=== PATIENT | female | born 1945 | race Hispanic/Latino ===

== ENCOUNTER 2020-06-08 02:02 | Observation (INO) | payer MEDICARE ==
[2020-06-08] MEDS ORDERED: SODIUM CHLORIDE 0.9% 1000 ML 1,000 ML IV ONE ×2 (02:09→05:26)
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
--- NOTE | 2020-06-08 02:41 | XRay Report ---
CHEST 1 VIEW INDICATION: ams. COMPARISON: None FINDINGS: SUPPORT DEVICES: None. HEART: Within normal limits. LUNGS/PLEURA: No acute air space or interstitial disease. ADDITIONAL FINDINGS: None. IMPRESSION: 1. No acute findings. Signer Name: Mikie Vail MD Signed: 06/08/2020 2:37 AM Workstation Name: [id number]
[2020-06-08 02:46] LABS: Bilirubin,Urine SM (Negative); Blood,Urine NEG (Negative); Color,Urine Yellow (Yellow); Mucus,Urine FEW /HPF; RBC,Urine < 1.0 /HPF (0.0-6.0)
[2020-06-08 02:51] LABS: Basophils # (Auto) 0.1 K/mm3 (0.0-0.1); Basophils % (Auto) 1.8 % (0.0-1.8); Eosinophils # (Auto) 0.4 K/mm3 (0.0-0.4); Hematocrit 32.7 % (30.3-42.9); Hemoglobin 11.1 gm/dl (10.1-14.3); Lymphocytes # (Auto) 2.7 K/mm3 (1.2-5.4); Lymphocytes % (Auto) 38.1 % (13.4-35.0); Mean Corpuscular HGB Conc 34 % (30-34); Mean Corpuscular Volume 87 fl (79-97); Monocytes # (Auto) 0.7 K/mm3 (0.0-0.8); Monocytes % (Auto) 9.5 % (0.0-7.3); Platelet Count 242 K/mm3 (140-440); Red Blood Count 3.77 M/mm3 (3.65-5.03); Red Cell Distribution Width 14.3 % (13.2-15.2)
[2020-06-08 02:54] LABS: Benzodiazepines Screen,Urine Negative; Cannabinoid Screen,Urine Negative; Cocaine Screen,Urine Negative; Methadone Screen,Urine Negative; Opiate Screen,Urine Negative
[2020-06-08 02:55] LABS: Ictotest,Urine Negative (Negative)
[2020-06-08 03:07] LABS: Amphetamine Screen,Urine Positive
[2020-06-08 03:16] LABS: Alanine Aminotransferase 17 units/L (7-56); Albumin 3.5 g/dL (3.9-5); BUN/Creatinine Ratio 18; Blood Urea Nitrogen 21 mg/dL (7-17); Calcium 8.1 mg/dL (8.4-10.2); Hemolysis Index 5
--- NOTE | 2020-06-08 03:49 | Cat Scan Report ---
CT head without contrast HISTORY: Altered Mental Status. TECHNIQUE: Axial imaging performed from the skull apex through the skull base without the use of con trast. All CT scans at this location are performed using CT dose reduction for ALARA by means of aut omated exposure control. COMPARISON: None FINDINGS: Parenchyma: No acute intracranial hemorrhage or parenchymal abnormality. Ventricles: There is mild diffuse brain atrophy with commensurate ventricular enlargement which is l ikely age appropriate. Soft tissues: Soft tissues including the orbits appear normal. Bones: No acute osseous abnormality. Sinuses: Sinuses and mastoid air cells are clear. IMPRESSION: No acute abnormality. Signer Name: Mikie Vail MD Signed: 06/08/2020 3:45 AM Workstation Name: [id number]
[2020-06-08] MEDS ORDERED: ALBUTEROL 2.5 MG/3 ML NEBU IH PRN (05:45)
[2020-06-08] MEDS ORDERED: GLUCAGON (HUMAN RECOMBINANT) 1 MG/ML INJ IV ONE ×2 (05:45→06:00)
[2020-06-08] MEDS ORDERED: ONDANSETRON 4 MG/2 ML INJ IV PRN (05:45)
[2020-06-08] MEDS ORDERED: NALOXONE 0.4 MG/1 ML INJ IV PRN (05:45)
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
[2020-06-08] MEDS ORDERED: DEXTROSE 50% IN WATER (25GM) 50 ML SYRINGE IV PRN (06:03)
[2020-06-08] MEDS: HEPARIN 5,000 UNIT/1 ML VIAL SUB-Q SCH ×3 (06:09→21:47)
[2020-06-08] MEDS: cefTRIAXone/NS 2 GM/100 ML 2 GM/100 ML BAG IV SCH (06:20)
[2020-06-08] MEDS: POTASSIUM CHLORIDE 10 MEQ 10 MEQ/100 ML BAG IV SCH ×3 (06:55→09:19)
[2020-06-08] MEDS: D5W/0.9% NACL 1,000 ML IV SCH ×2 (07:21→15:20)
[2020-06-08] MEDS: IPRATROPIUM/ALBUTEROL SULFATE 3 ML AMPUL.NEB IH SCH ×3 (08:00→15:03)
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
--- NOTE | 2020-06-08 09:39 | Electrocardiograph Report ---
[facility] Test Date: 2020-06-08 Test Time: 02:16:27 Pat Name: STEVE HUSSEIN Department: Room: [place] [address] Gender: F Strategic Planning Consultant: BHARTI : 1945 Requested By: HAO SEGAL III Order Number: [id number] Reading MD: Elliott Rodrigues Measurements Intervals [place] Rate: 45 P: 39 NV: 176 QRS: 20 QRSD: 93 T: 26 QT: 685 QTc: 584 Interpretive Statements Sinus bradycardia Atrial premature complex Prolonged QT interval No previous ECG available for comparison Electronically Signed On 06-08-2020 9:38:40 EDT by Elliott Rodrigues
[2020-06-08] MEDS: FAMOTIDINE 20 MG/2 ML INJ IV SCH ×2 (10:10→21:47)
[2020-06-08] MEDS ORDERED: POTASSIUM CHLORIDE ER 20 MEQ TAB PO NR (10:31)
[2020-06-08] MEDS: hydrALAZINE 20 MG/1 ML INJ IV PRN ×2 (10:56→20:29)
[2020-06-08] MEDS: INSULIN LISPRO 100 UNIT/ML SUB-Q SCH ×2 (12:51→17:46)
[2020-06-08] MEDS: hydrALAZINE 25 MG TAB PO SCH ×2 (14:21→21:47)
[2020-06-08] MEDS: ACETAMINOPHEN 325 MG TAB PO PRN ×2 (15:22→20:30)
[2020-06-08] MEDS ORDERED: MONTELUKAST 10 MG TAB PO SCH (18:00)
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
[2020-06-08] MEDS ORDERED: traZODone 100 MG TAB PO SCH (22:00)
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
[2020-06-09] MEDS: cefTRIAXone/NS 2 GM/100 ML 2 GM/100 ML BAG IV SCH (05:35)
[2020-06-09] MEDS: HEPARIN 5,000 UNIT/1 ML VIAL SUB-Q SCH (05:35)
[2020-06-09] MEDS: ACETAMINOPHEN 325 MG TAB PO PRN (05:42)
[2020-06-09] MEDS: hydrALAZINE 20 MG/1 ML INJ IV PRN (05:44)
[2020-06-09] MEDS: INSULIN LISPRO 100 UNIT/ML SUB-Q SCH ×2 (06:32)
[2020-06-09 06:34] LABS: Basophils # (Auto) 0.1 K/mm3 (0.0-0.1); Basophils % (Auto) 0.9 % (0.0-1.8); Eosinophils % (Auto) 0.4 % (0.0-4.3); Hemoglobin 11.6 gm/dl (10.1-14.3); Lymphocytes # (Auto) 1.6 K/mm3 (1.2-5.4); Lymphocytes % (Auto) 22.4 % (13.4-35.0); Mean Corpuscular HGB Conc 33 % (30-34); Mean Corpuscular Volume 89 fl (79-97); Monocytes # (Auto) 0.5 K/mm3 (0.0-0.8); Monocytes % (Auto) 6.6 % (0.0-7.3); Platelet Count 232 K/mm3 (140-440); Red Blood Count 3.95 M/mm3 (3.65-5.03); Red Cell Distribution Width 14.4 % (13.2-15.2)
[2020-06-09 06:52] LABS: Blood Urea Nitrogen 7 mg/dL (7-17); Calcium 7.6 mg/dL (8.4-10.2); Hemolysis Index 10
[2020-06-09 06:53] LABS: BUN/Creatinine Ratio 10
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
[2020-06-09] MEDS: hydrALAZINE 25 MG TAB PO SCH (09:33)
[2020-06-09] MEDS: FAMOTIDINE 20 MG/2 ML INJ IV SCH (09:34)
[2020-06-09] MEDS ORDERED: DONEPEZIL 10 MG TAB PO SCH (10:00)
[2020-06-09] MEDS ORDERED: NON-FORMULARY EACH (Fluoxetine Hcl [Prozac] 40 MG Capsule) PO SCH (10:00)
[2020-06-09] MEDS ORDERED: FLUoxetine 20 MG CAP PO SCH (10:00)
[2020-06-09] MEDS ORDERED: POTASSIUM CHLORIDE ER 20 MEQ TAB PO SCH (10:00)
[2020-06-09] MEDS ORDERED: HYDROcodone/ACETAMINOPHEN 5-325 MG TAB PO NR (10:48)
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
[2020-06-09] MEDS ORDERED: amLODIPine 5 MG TAB PO SCH (13:00)
[2020-06-09 14:30] VITALS: BP 148/77
== END 2020-06-09 14:00 | disposition home or self-care (01) ==
LOC: ED 02:02 → INTOOBSV 04:41 → CC1 04:41 → 4A 10:35
PROVIDERS: ADMIT Hospitalist; ATTEND Internal Medicine
DX: G93.41 Metabolic encephalopathy (principal); Z20.822 Contact with and (suspected) exposure to COVID-19; T50.901A Poisoning by unspecified drugs, medicaments and biological substances, accidental (unintentional), initial encounter; E11.9 Type 2 diabetes mellitus without complications; I10 Essential (primary) hypertension; R00.1 Bradycardia, unspecified; I95.89 Other hypotension; E87.2 Acidosis
CPT/HCPCS: 36415; 70450; 71045; 80048; 80053; 80307; 81001; 82140; 82550; 82962; 84132; 85025; 93005; 93306; 96361; 96365; 96366; 96372; 96375; 96376; 99291; G0378; J0360; J0696; J1610; J1644; J2405; J3480; J7030; J7042; U0003; 80320; 96374; G0480